=== PATIENT | male | born 1950 | race African-American/Black ===

== ENCOUNTER 2016-07-22 00:04 | Observation (INO) | payer MEDICARE, MEDICAID ==
[~2016-07-22] VITALS: Ht 175.3 cm; Wt 92.6 kg
[2016-07-22] MEDS ORDERED: NS IV 1000 ML 1,000 ML IV ONE ×2 (00:21→01:05)
[2016-07-22] MEDS ORDERED: inSUlin (REGULAR) HUMAN 1 UNIT/0.01 ML (CHARGE PER UNIT) IV ONE ×2 (00:30→01:15)
[2016-07-22 00:49] LABS: CALCIUM 8.7 MG/DL (8.5-10.1); CREATININE SERUM 3.68 MG/DL (0.60-1.30); POTASSIUM 4.1 MMOL/L (3.6-5.0)
[2016-07-22 01:05] LABS: BILIRUBIN,URINE NEGATIVE (NEGATIVE); KETONES,URINE NEGATIVE (NEGATIVE); LEUKOCYTE ESTERASE ,URINE NEGATIVE (NEGATIVE); NITRITE,URINE NEGATIVE (NEGATIVE); PH,URINE 6 (5-9); PROTEIN,URINE 4+ (NEGATIVE); UROBILINOGEN,URINE NORMAL (NORMAL)
[2016-07-22 01:06] LABS: BASOPHILS % (AUTO) 0 % (0-10); EOSINOPHILS # (AUTO) 0.1 10^3/uL (0.0-0.3); EOSINOPHILS % (AUTO) 1 % (0-10); LYMPHOCYTES # (AUTO) 2.3 X 10^3 (1.0-4.0); LYMPHOCYTES % (AUTO) 24 % (12-44); MEAN CORPUSCULAR HEMOGLOBIN 27 PG (25-34); MEAN CORPUSCULAR HGB CONC 34 G/DL (32-36); MEAN CORPUSCULAR VOLUME 81 FL (80-99); MEAN PLATELET VOLUME 11.8 FL (7.4-10.4); MONOCYTES # (AUTO) 0.8 X 10^3 (0.0-1.0); MONOCYTES % (AUTO) 9 % (0-12); NEUTROPHILS # (AUTO) 6.2 X 10^3 (1.8-7.8); NEUTROPHILS % (AUTO) 65 % (42-75); PLATELET COUNT 216 10^3/uL (130-400); RED CELL DISTRIBUTION WIDTH 12.9 % (10.0-14.5); WHITE BLOOD COUNT 9.5 10^3/uL (4.3-11.0)
--- NOTE | 2016-07-22 01:23 | ED General ---
General Chief Complaint: Glucose Problems Stated Complaint: RAN OUT OF INSULIN Nursing Triage Note: LANTUS PEN NOT WORKING NO INSULIN X3 DAYS Nursing Sepsis Screen: No Definite Risk Source of Information: Patient Exam Limitations: No Limitations History of Present Illness Time Seen by Provider: 00:14 Initial Comments This 66-year-old gentleman presents to the emergency room with hyperglycemia. He reports visiting [place] from [place] and leaving his insulin at home. He did bring him on Lantus pen with him but the trigger is frozen. He has had increased urination but denies any other symptoms. His primary care provider is Dr. Granger in [place]. Fingerstick blood sugar was "high". He normally takes Lantus 30 units at bedtime and NovoLog 15 units with meals. Allergies and Home Medications Allergies Coded Allergies: No Known Drug Allergies (Unverified , 07/22/16) Constitutional: no symptoms reported EENTM: no symptoms reported Respiratory: no symptoms reported Cardiovascular: other (tachycardia) Gastrointestinal: no symptoms reported Genitourinary: frequency Musculoskeletal: no symptoms reported Skin: no symptoms reported Psychiatric/Neurological: No Symptoms Reported Hematologic/Lymphatic: No Symptoms Reported Past Zvgskfo-Nqtpgc-Vrmxkp Hx Patient Social History Alcohol Use: Denies Use Recreational Drug Use: No Smoking Status: Never a Smoker Recent Foreign Travel: No Contact w/Someone Who Travel: No Recent Infectious Disease Expo: No Recent Hopitalizations: No Immunizations Up To Date Tetanus Booster (TDap): Unknown Seasonal Allergies Seasonal Allergies: No Surgeries HX Surgeries: Yes (THROAT) Respiratory Hx Respiratory Disorders: No Cardiovascular Hx Cardiac Disorders: Yes Cardiac Disorders: High Cholesterol, Hypertension Neurological Hx Neurological Disorders: No Genitourinary Hx Genitourinary Disorders: No Gastrointestinal Hx Gastrointestinal Disorders: No Musculoskeletal Hx Musculoskeletal Disorders: Yes Musculoskeletal Disorders: Arthritis Endocrine Hx Endocrine Disorders: Yes Endocrine Disorders: Diabetes, Insulin dep HEENT HX ENT Disorders: No Cancer Hx Cancer: No Psychosocial Hx Psychiatric Problems: No Integumentary HX Skin/Integumentary Disorder: No Blood Transfusions Hx Blood Disorders: No Physical Exam Vital Signs Vital Sign - Last 12Hours 07/22/16 00:25 Temp 97.0 Pulse 108 Resp 18 B/P (MAP) 178/102 Pulse Ox 98 O2 Delivery Room Air Capillary Refill : Less Than 3 Seconds Progress/Results/Core Measures Results/Orders Lab Results Laboratory Tests Test 07/22/16 00:20 07/22/16 00:25 07/22/16 01:08 Range/Units Glucometer > 600 *H 482 *H 70-110 MG/DL White Blood Count 9.5 4.3-11.0 10^3/uL Red Blood Count 4.60 4.35-5.85 10^6/uL Hemoglobin 12.5 L 13.3-17.7 G/DL Hematocrit 37 L 40-54 % Mean Corpuscular Volume 81 80-99 FL Mean Corpuscular Hemoglobin 27 25-34 PG Mean Corpuscular Hemoglobin Concent 34 32-36 G/DL Red Cell Distribution Width 12.9 10.0-14.5 % Platelet Count 216 130-400 10^3/uL Mean Platelet Volume 11.8 H 7.4-10.4 FL Neutrophils (%) (Auto) 65 42-75 % Lymphocytes (%) (Auto) 24 12-44 % Monocytes (%) (Auto) 9 0-12 % Eosinophils (%) (Auto) 1 0-10 % Basophils (%) (Auto) 0 0-10 % Neutrophils # (Auto) 6.2 1.8-7.8 X 10^3 Lymphocytes # (Auto) 2.3 1.0-4.0 X 10^3 Monocytes # (Auto) 0.8 0.0-1.0 X 10^3 Eosinophils # (Auto) 0.1 0.0-0.3 10^3/uL Basophils # (Auto) 0.0 0.0-0.1 10^3/uL Urine Color YELLOW Urine Clarity CLEAR Urine pH 6 5-9 Urine Specific [place] 1.010 L 1.016-1.022 Urine Protein 4+ NEGATIVE Urine Glucose (UA) 4+ H NEGATIVE Urine Ketones NEGATIVE NEGATIVE Urine Nitrite NEGATIVE NEGATIVE Urine Bilirubin NEGATIVE NEGATIVE Urine Urobilinogen NORMAL NORMAL MG/DL Urine Leukocyte Esterase NEGATIVE NEGATIVE Urine RBC (Auto) 3+ H NEGATIVE Urine RBC 5-10 H /HPF Urine WBC NONE /HPF Urine Squamous Epithelial Cells 2-5 /HPF Urine Crystals NONE /LPF Urine Bacteria NEGATIVE /HPF Urine Casts NONE /LPF Urine Mucus NEGATIVE /LPF Urine Culture Indicated NO Sodium Level 129 L 135-145 MMOL/L Potassium Level 4.1 3.6-5.0 MMOL/L Chloride Level 95 L 98-107 MMOL/L Carbon Dioxide Level 20 L 21-32 MMOL/L Anion Gap 14 5-14 MMOL/L Blood Urea Nitrogen 37 H 7-18 MG/DL Creatinine 3.68 H 0.60-1.30 MG/DL Estimat Glomerular Filtration Rate 20 BUN/Creatinine Ratio 10 Glucose Level 683 *H 70-105 MG/DL Calcium Level 8.7 8.5-10.1 MG/DL Magnesium Level 1.8 1.8-2.4 MG/DL My Orders Orders - DARSHAN BULLARD MD Accucheck Stat ONCE (07/22/16 00:07) Saline Lock/Iv-Start (07/22/16 00:21) Ns Iv 1000 Ml (Sodium Chloride 0.9%) (07/22/16 00:21) Basic Metabolic Panel (07/22/16 00:21) Insulin (Regular) Human (Humulin R (Per (07/22/16 00:30) Cbc With Automated Diff (07/22/16 01:00) Ua Culture If Indicated (07/22/16 01:00) Magnesium (07/22/16 01:00) Ns Iv 1000 Ml (Sodium Chloride 0.9%) (07/22/16 01:05) Accucheck Stat ONCE (07/22/16 01:06) Insulin (Regular) Human (Humulin R (Per (07/22/16 01:15) Insulin Determir (Per Unit) (Levemir (Pe (07/22/16 01:30) Medications Given in ED Current Medications Medications Dose Ordered Sig/Jenny Route Start Time Stop Time Status Last Admin Dose Admin Insulin Human Regular 5 unit ONCE ONCE IV 07/22/16 01:15 07/22/16 01:16 DC 07/22/16 01:27 5 UNIT Insulin Human Regular 10 unit ONCE ONCE IV 07/22/16 00:30 07/22/16 00:31 DC 07/22/16 00:30 10 UNIT Sodium Chloride 1,000 ml @ 0 mls/hr Q0M ONCE IV 07/22/16 00:21 07/22/16 00:24 DC 07/22/16 00:30 0 MLS/HR Sodium Chloride 1,000 ml @ 0 mls/hr Q0M ONCE IV 07/22/16 01:05 07/22/16 01:07 DC 07/22/16 01:26 0 MLS/HR Vital Signs/I&O Vital Sign - Last 12Hours 07/22/16 07/22/16 07/22/16 07/22/16 00:25 01:37 02:05 04:04 Temp 97.0 97.1 97.3 98.1 Pulse 108 102 107 91 Resp 18 18 18 20 B/P (MAP) 178/102 168/78 169/72 Pulse Ox 98 99 96 94 O2 Delivery Room Air Room Air Room Air Blood Pressure Mean: 127 Point of Care Testing Finger Stick Blood Glucose: 482 Blood Glucose Action Taken: RN AND DR NOTIFIED Progress Note : Progress Note Patient received a liter of IV fluids and 2 units of insulin IV. This improved blood sugar to 482. Additional 5 units was administered along with another liter of IV fluids. 30 units of Levemir was injected prior to moving the patient to the floor. Patient will be hydrated because of renal failure. Departure Communication Time/Spoke to Admitting Phy: 01:15 Communication Case reviewed with Dr. Elias who agrees with admission for observation with aggressive hydration. Impression Impression: Primary Impression: Hyperglycemia Additional Impression: Acute renal failure Qualified Codes: N17.9 - Acute kidney failure, unspecified Disposition: ADMITTED INPATIENT Condition: Improved Decision to Admit Reason: Admit from ER (General) Decision to Admit/Date: Jul 22, 2016 Departure-Patient Inst. Referrals: NO,LOCAL PHYSICIAN (PCP) Primary Care Physician DARSHAN BULLARD MD Jul 22, 2016 01:23
[2016-07-22] MEDS ORDERED: inSUlin DETERMIR 1 UNIT/0.01 ML (LEVEMIR) CHARGE PER UNIT SQ ONE (01:30)
[2016-07-22 02:05] VITALS: BP 168/78
[2016-07-22] MEDS: NS IV 1000 ML 1,000 ML IV SCH ×2 (03:18→09:23)
[2016-07-22 04:04] VITALS: BP 169/72
[2016-07-22] MEDS: inSUlin (REGULAR) HUMAN 1 UNIT/0.01 ML (CHARGE PER UNIT) SC SCH ×3 (05:51→14:57)
[2016-07-22 05:52] VITALS: BP 166/79
[2016-07-22 07:56] LABS: CALCIUM 8.2 MG/DL (8.5-10.1); CREATININE SERUM 2.84 MG/DL (0.60-1.30); POTASSIUM 3.4 MMOL/L (3.6-5.0)
[2016-07-22 08:00] VITALS: BP 177/83
[2016-07-22] MEDS ORDERED: inSUlin ASPART (NovoLOG) 1 UNIT/0.01 ML (CHARGE PER UNIT) SC SCH ×2 (09:00→12:00)
[2016-07-22] MEDS ORDERED: AMLO10TA2 PO (09:29)
[2016-07-22] MEDS ORDERED: ATOR40TA70 PO (09:29)
[2016-07-22] MEDS ORDERED: INSU100I10 SC ×2 (09:29→13:36)
[2016-07-22] MEDS ORDERED: INSU100I14 SC ×2 (09:29→13:36)
[2016-07-22] MEDS ORDERED: HYDR-3820 PO (09:29)
[2016-07-22] MEDS ORDERED: LOSA25TA21 PO (09:29)
[2016-07-22] MEDS ORDERED: HYDR12.5 PO (09:29)
[2016-07-22] MEDS ORDERED: CATHETER FLUSH 10 ML SYR IV PRN (10:30)
[2016-07-22 12:00] VITALS: BP 187/88
--- NOTE | 2016-07-22 12:18 | History & Physical-Hospitalist ---
HPI History of Present Illness: HPI/Chief Complaint The patient is a 66-year-old black male. He lives in [place]. He reports that his truck broke down and is in the shop. He is not sure when it will be repaired. He decided that because of that that he would come over here to spend some time with his who lives in [place]. After arriving he found that he had left his NovoLog in the truck in [place]. In addition his Lantus pen was jammed and would not deliver. He therefore had had no insulin in 2-3 days. He noted that he was feeling ill and urinating frequently and came to the emergency room. In the emergency room his initial blood sugar was 683 and his creatinine 3.68 we are not clear what his normal creatinine is. This morning his blood sugar is 140 and with hydration his creatinine has improved to 2.84. He now feels as if he is ready to go home. His plan had been to go to [place] in order to get his insulin. However his truck is not yet repaired and it was suggested to him it would make more sense to refill both the NovoLog and the Lantus here and wait for the truck to be completed. Source: patient Exam Limitations: no limitations Date Seen 07/22/16 Attending Physician Black Bhatti MD PCP No,Local Physician Referring Physician Date of Admission Jul 22, 2016 at 01:19 Home Medications & Allergies Home Medications Reviewed patient Home Medication Reconciliation Form Allergies Allergies Coded Allergies No Known Drug Allergies (Unverified07/22/16) Past Vtukgyq-Vgvbrr-Xnqnto Hx Patient Social History Alcohol Use: Denies Use Recreational Drug Use: No Smoking Status: Never a Smoker Physical Abuse Screen: No Sexual Abuse: No Recent Foreign Travel: No Contact w/other who traveled: No Recent Hopitalizations: No Recent Infectious Disease Expo: No Immunizations Up To Date Tetanus Booster (TDap): Unknown Seasonal Allergies Seasonal Allergies: No Surgeries HX Surgeries: Yes (THROAT) Respiratory Hx Respiratory Disorders: No Cardiovascular Hx Cardiovascular Disorders: Yes Cardiac Disorders: High Cholesterol, Hypertension Neurological Hx Neurological Disorders: No Genitourinary Hx Genitourinary Disorders: No Gastrointestinal Hx Gastrointestinal Disorders: No Musculoskeletal Hx Musculoskeletal Disorders: Yes Musculoskeletal Disorders: Arthritis Endocrine Hx Endocrine Disorders: Yes Endocrine Disorders: Diabetes, Insulin dep HEENT HX ENT Disorders: No Cancer Hx Cancer: No Psychosocial Hx Psychiatric Problems: No Integumentary HX Skin/Integumentary Disorder: No Blood Transfusions Hx Blood Disorders: No Family Medical History Family Hx: Alcoholism 19 MOTHER G8 BROTHER G8 SISTER Completed stroke 19 MOTHER Diabetes mellitus 19 MOTHER G8 BROTHER Hypercholesterolemia G8 BROTHER Hypertension G8 BROTHER Myocardial infarction 19 FATHER Review of Systems Constitutional: see HPI EENTM: blurred vision Respiratory: no symptoms reported Cardiovascular: no symptoms reported Gastrointestinal: no symptoms reported Genitourinary: frequency Musculoskeletal: muscle weakness Skin: no symptoms reported Physical Exam Physical Exam Vital Signs Vital Sign - Last 12Hours 07/22/16 00:25 Temp 97.0 Pulse 108 Resp 18 B/P (MAP) 178/102 Pulse Ox 98 O2 Delivery Room Air Capillary Refill : Less Than 3 Seconds General Appearance: No Apparent Distress, WD/WN Eyes: Bilateral Eye Normal Inspection Neck: Normal Inspection Respiratory: Chest Non Tender, Lungs Clear, Normal Breath Sounds, No Accessory Muscle Use, No Respiratory Distress Cardiovascular: Regular Rate, Rhythm, No Edema, No Gallop, No JVD, No Murmur, Normal Peripheral Pulses Gastrointestinal: Normal Bowel Sounds, No Organomegaly, No Pulsatile Mass, Non Tender, Soft Extremity: Normal Capillary Refill, Normal Inspection, Normal Range of Motion, Non Tender, No Calf Tenderness, No Pedal Edema Neurologic/Psychiatric: Alert, Oriented x3, No Motor/Sensory Deficits, Normal Mood/Affect Skin: Normal Color, Warm/Dry Lymphatic: No Adenopathy Results Results/Procedures Lab Laboratory Tests 07/22/16 00:25 07/22/16 07:25 Assessment/Plan Admission Diagnosis 1.diabetes mellitus type II with hyperglycemia but no acidosis. 2.renal failure , acute versus acute on chronic. 3.hypertension Assessment and Plan Discharge with new prescriptions for both Lantus and NovoLog. He will return to the care of his [facility] physician Clinical Quality Measures DVT/VTE Risk/Contraindication: Risk Factor Score Per Nursin RFS Level Per Nursing on Admit: 3=High BLACK BHATTI MD Jul 22, 2016 12:18
[2016-07-22] MEDS ORDERED: HYDROcodone/APAP 10 MG/325 MG (LORTAB) TAB PO PRN (12:30)
--- NOTE | 2016-07-22 13:38 | Discharge Inst-Simple/Standard ---
Discharge Inst-Standard Patient Instructions/Follow Up Plan of Care/Instructions/FU: New prescriptions for insulin have been written for you. Activity as Tolerated: Yes Goal: Resume usual medications and state of health Discharge Diet: ADA Diet Return to The Hospital For: Change in condition Planned Outpatient Orders/Ref. Pneu Vac Indicated: Yes MICHAEL BHATTI MD Jul 22, 2016 13:38
[2016-07-22 15:24] VITALS: BP 187/88
[2016-07-22] MEDS ORDERED: inSUlin DETERMIR 1 UNIT/0.01 ML (LEVEMIR) CHARGE PER UNIT SQ SCH (21:00)
[2016-07-23] MEDS ORDERED: ATORVASTATIN 40 MG (LIPITOR) TABLET PO SCH (09:00)
[2016-07-23] MEDS ORDERED: HYDROCHLOROTHIAZIDE 12.5 MG (HCTZ) CAP PO SCH (09:00)
[2016-07-23] MEDS ORDERED: LOSARTAN 25 MG (COZAAR) TAB PO SCH (09:00)
[2016-07-23] MEDS ORDERED: amLODIPine 10 MG (NORVASC) TAB PO SCH (09:00)
== END 2016-07-22 13:36 | disposition home or self-care (01) ==
LOC: EDUNIT# 00:04 → ER 00:09 → UNDOADMOB 01:19 → 4TH 01:19 → UNDODISOB 15:24
PROVIDERS: ADMIT Internal Medicine; ATTEND Internal Medicine
DX: E11.65 Type 2 diabetes mellitus with hyperglycemia (principal); Z79.4 Long term (current) use of insulin; N17.9 Acute kidney failure, unspecified; I10 Essential (primary) hypertension
CPT/HCPCS: 36415; 80048; 81000; 82962; 83735; 85025; 96361; 96372; 96374; 96376; 99211; G0378